=== PATIENT | male | born 1950 ===

== ENCOUNTER 2017-10-26 11:46 | Emergency (ER) | payer SELFPAY ==
[~2017-10-26] VITALS: Ht 170.2 cm; Wt 78.3 kg
[2017-10-26 11:55] VITALS: Ht 170.2 cm; Wt 78.3 kg
[2017-10-26] MEDS ORDERED: HYDROCODONE/APAP (5/325) TAB PO ONE (13:00)
--- NOTE | 2017-10-26 13:44 | RADRPT ---
PROCEDURE: XR left Tibia and Fibula. CLINICAL INDICATION: Pain, injury TECHNIQUE: AP and lateral views of the tibia and fibula were obtained. COMPARISON: No prior studies are available for comparison. FINDINGS: There is normal mineralization and alignment. No fracture or osseous lesion is identified. The joints are unremarkable. There are normal soft tissues without evidence of soft tissue swelling. IMPRESSION: No definite abnormalities are identified. RPTAT:AAJJ Physician Jennifer Date Time Electronically viewed and signed by Darell No Physician on 10/26/2017 13:44 PRIYA/
[2017-10-26] MEDS ORDERED: LIDOCAINE 1% (MDV) 20 ML INJ SC ONE (14:30)
[2017-10-26] MEDS ORDERED: HYDR-906 PO (14:38)
[2017-10-26] MEDS ORDERED: CEPH-443 PO (14:39)
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
== END 2017-10-26 15:48 | disposition home or self-care (01) ==
LOC: FTE 11:46
DX: S81.812A Laceration without foreign body, left lower leg, initial encounter (principal); I10 Essential (primary) hypertension; F17.210 Nicotine dependence, cigarettes, uncomplicated; W22.8XXA Striking against or struck by other objects, initial encounter; Y92.9 Unspecified place or not applicable
CPT/HCPCS: 73590